=== PATIENT | female | born 1975 | race Asian ===

== ENCOUNTER → 2017-07-20 | Day surgery (SDC) | payer BC ==
[~2017-07-20] MED LIST: LIDOCAINE HCL 1% 20ML VIAL (Pyxis) INJ ONE; SODIUM BICARBONATE 4% (2.4MEQ) 5ML VIAL IV ONE
== END ==
LOC: RAD 10:19
PROVIDERS: ATTEND Internal Medicine Endocrinology, Diabetes & Metabolism
DX: C73 Malignant neoplasm of thyroid gland (principal)
CPT/HCPCS: 10022; 76942; 88172; 88173; J3490

== ENCOUNTER 2017-12-29 13:00 | Inpatient (IN) | payer BC ==
[~2017-12-29] VITALS: Ht 165.1 cm; Wt 71.2 kg
[2017-12-30 06:27] LABS: UCG SCREEN NEGATIVE
[2017-12-30] MEDS ORDERED: FENTANYL CITRATE/PF 50MCG/ML 2ML VIAL ONE (06:43)
[2017-12-30] MEDS ORDERED: MIDAZOLAM HCL 2 MG/2 ML VIAL ONE (06:43)
[2017-12-30] MEDS ORDERED: LIDOCAINE HCL/PF 1% 10 MG/ML 5ML VIAL ONE (06:44)
[2017-12-30] MEDS ORDERED: PROPOFOL 200MG/20ML VIAL IV ONE (06:44)
[2017-12-30] MEDS ORDERED: ROCURONIUM BROMIDE 10MG/ML VIAL 5ML IV ONE (06:44)
[2017-12-30] MEDS ORDERED: SKIN ADHESIVE 0.7 GM EA TOP ONE (07:07)
[2017-12-30] MEDS ORDERED: BUPIVACAINE HCL/PF 0.5% (5MG/ML) 10ML ONE (07:07)
[2017-12-30] MEDS ORDERED: HYDROCODONE/ACETAMINOPHEN 5/325MG TABLET PO PRN (07:15)
[2017-12-30] MEDS ORDERED: MORPHINE SULFATE 4 MG/ML CPJ (NOT FOR IM USE) IV PRN ×2 (07:15→09:38)
[2017-12-30] MEDS ORDERED: DEXAMETHASONE 4MG/ML 1ML VIAL ONE (07:38)
[2017-12-30] MEDS ORDERED: ONDANSETRON HCL 4MG/2ML VIAL ONE (07:38)
[2017-12-30] MEDS ORDERED: MORPHINE SULFATE 2 MG/ML CPJ (NOT FOR IM USE) IV PRN (08:00)
[2017-12-30] MEDS ORDERED: VIT1TABL62 PO (08:37)
[2017-12-30] MEDS ORDERED: FERR325T6 PO (08:37)
[2017-12-30] MEDS ORDERED: COR12 PO (08:37)
[2017-12-30] MEDS ORDERED: ATOR20TA65 PO (08:37)
[2017-12-30] MEDS ORDERED: ASPI-1153 PO (08:37)
[2017-12-30] MEDS ORDERED: METOCLOPRAMIDE HCL 10MG/2ML VIAL ONE (08:42)
[2017-12-30 11:00] VITALS: BP 145/94
[2017-12-30 12:00] VITALS: BP 150/86
[2017-12-30] MEDS ORDERED: DEXT 5%/0.45% NACL KCL 20MEQ/L 1,000 ML IV SCH (12:00)
[2017-12-30 12:30] VITALS: BP 130/85
[2017-12-30] MEDS: MORPHINE SULFATE 4 MG/ML CPJ (NOT FOR IM USE) IV PRN ×2 (13:25→19:02)
[2017-12-30] MEDS: ONDANSETRON HCL 4MG/2ML VIAL IV PRN ×2 (13:25→19:02)
[2017-12-30 16:00] VITALS: BP 130/85
[2017-12-30 20:00] VITALS: BP 132/78
[2017-12-30 22:01] LABS: CHLORIDE 101 mEq/L (98-107)
[2017-12-31] VITALS: BP 125/62
[2017-12-31 04:00] VITALS: BP 129/72
[2017-12-31] MEDS: HYDROCODONE/ACETAMINOPHEN 5/325MG TABLET PO PRN ×3 (07:04→15:54)
[2017-12-31 08:00] VITALS: BP 124/69
[2017-12-31] MEDS ORDERED: ENOXAPARIN 40MG/0.4ML SYR SUBCUT SCH (09:00)
[2017-12-31 12:00] VITALS: BP 124/69
[2017-12-31 16:00] VITALS: BP 110/98
[2017-12-31 17:00] VITALS: BP 110/64
[2018-01-03] MEDS ORDERED: CHOL500063 PO (15:28)
[2018-01-04] MEDS ORDERED: [UNRECOGNIZED DRUG - CODE] PO (07:03)
== END 2017-12-31 17:35 | disposition home or self-care (01) | DRG 627 ==
LOC: ORIP 12-30 05:12 → 6EST 12-30 11:31
PROVIDERS: ADMIT Surgery; ATTEND Surgery
PROC: 0GTH0ZZ Resection of Right Thyroid Gland Lobe, Open Approach (ICD-10-PCS; principal; 2017-12-30 07:00)
DX: E07.9 Disorder of thyroid, unspecified (principal)
CPT/HCPCS: 36415; 80048; 81025; 88309; 88331; C1893; J1100; J1650; J2250; J2270; J2405; J2704; J2765; J3010; J3490

== ENCOUNTER → 2018-03-21 | Outpatient (CLI) | payer BC ==
[~2018-03-21] MED LIST changes: +ASPI-1153 PO; +ATOR20TA65 PO; +COR12 PO; +FERR325T6 PO; -LIDOCAINE HCL 1% 20ML VIAL (Pyxis) INJ ONE; -SODIUM BICARBONATE 4% (2.4MEQ) 5ML VIAL IV ONE; +VIT1TABL62 PO; +[UNRECOGNIZED DRUG - CODE] PO
== END | disposition home or self-care (01) ==
LOC: US 07:45
PROVIDERS: ATTEND Internal Medicine Endocrinology, Diabetes & Metabolism
DX: C73 Malignant neoplasm of thyroid gland (principal); Z90.89 Acquired absence of other organs
CPT/HCPCS: 76536; 79005; A9517

== ENCOUNTER → 2018-04-06 | Outpatient (CLI) | payer BC | END | disposition home or self-care (01) | LOC: NM 08:14 | PROVIDERS: ATTEND Internal Medicine Endocrinology, Diabetes & Metabolism | DX: C73 Malignant neoplasm of thyroid gland (principal) | CPT/HCPCS: 78802 ==

== ENCOUNTER → 2019-02-13 | Outpatient (CLI) | payer BC | END | disposition home or self-care (01) | LOC: NM 09:41 | PROVIDERS: ATTEND Internal Medicine Endocrinology, Diabetes & Metabolism | DX: C73 Malignant neoplasm of thyroid gland (principal) | CPT/HCPCS: 79005; A9517 ==

== ENCOUNTER → 2019-02-27 | Outpatient (CLI) | payer BC | END | disposition home or self-care (01) | LOC: NM 07:35 | PROVIDERS: ATTEND Internal Medicine Endocrinology, Diabetes & Metabolism | DX: C73 Malignant neoplasm of thyroid gland (principal) | CPT/HCPCS: 78802 ==